=== PATIENT | female | born 1995 | race Caucasian/White ===

== ENCOUNTER 2018-03-22 12:09 | Emergency (ER) | payer SELFPAY ==
[2018-03-22 12:17] VITALS: BP 151/102; PULSE 118; RESP 16; TEMP 36.5; O2SAT 98
[2018-03-22] MEDS: Normal Saline 1,000 ML 1000 ML IV (13:00)
--- NOTE | 2018-03-22 13:13 | W.ED.GENAD ---
Discharge Plan Disposition Patient Disposition: HOME Condition: Good Discharge Details Chief Complaint: RespSymp Clinical Impression: URI (upper respiratory infection), Strep sore throat, Dizziness Primary Care Provider: Jeremi Fragoso ED Provider: Say Kline Home Meds and New Rx's Prescriptions: New amoxicillin 500 mg capsule 500 mg PO BID Qty: 14 RF: 0 meclizine 25 mg tablet 25 mg PO BID PRN (Reason: dizziness) Qty: 10 RF: 0 albuterol sulfate 90 mcg/actuation HFA aerosol inhaler 2 puff IH Q6H PRN (Reason: bronchospasm) Qty: 8 RF: 0 No Action medroxyprogesterone [Depo-Provera] 150 MG/1 ML suspension 150 mg IM 12 Weeks RF: 0 Zyrtec 10 MG capsule 10 mg PO DAILY PRNRF: 0 Discharge Instructions Instructions: Pharyngitis (ED) Additional Instructions: Please take the medication as directed. If you notice any worsening of your symptoms, or any new symptoms such as vomiting, diarrhea, fever, chills, shortness of breath, chest pain, numbness, weakness, or fainting , please return immediately to the emergency department for reevaluation. Please follow up with your primary care provider as soon as possible for reassessment and reevaluation. As always, it was a pleasure participating in your medical care today. Referrals: Jeremi Fragoso [Primary Care Provider] - Medical Decision Making This is a pleasant 22-year-old female who presents for evaluation of various complaints including URI like symptoms, in conjunction with though a central sharp chest pain with associated shortness of breath and a pleuritic component. Patient signs and symptoms are certainly concerning for strep or influenza, however with her pleuritic chest pain in conjunction with her tachycardia and subjective shortness of breath while on control and concern for potential pulmonary embolism. Will further evaluate to rule out PE, rehydrate the patient, check for strep and flu, and treat her pain with Toradol. 2:33 PM Patient's laboratory workup is relatively benign, she has mildly elevated white count but no other significant abnormality. Strep is positive, however her influenza is negative. CT angios per radiology demonstrates no evidence of acute process or pulmonary embolism. Patient is feeling notably better after she received her breathing treatment here. Did give her some meclizine as she is now complaining about mild dizziness. With a benign laboratory workup, the presence of strep, I do feel this explains her sore throat. I do feel that there is a reactive airway disease component with the tightness in her chest, and with no evidence of pulmonary embolism or pneumonia I feel that no further imaging or management is needed for that. We will give an inhaler for home use, amoxicillin for the strep throat, instructions for close follow-up. We discussed red flags which return the patient understands. I have extensively reviewed the treatment plan and discharge instructions with the patient and their family. I have addressed all patient concerns at this time. The patient and family was made aware of what symptoms to monitor for that would warrant a return to the emergency department. Discussed the plan with the patient and family, they demonstrate verbal understanding and agreement with our assessment and plan at this time. EKG 13: 11 Rate 86, intervals normal, no significant ST elevations or depressions, inverted T waves in V1 which can be normal. No S1, Q3, T3 HPI General Date/Time Provider Initiated Documentation: 03/22/18 12:46. HPI Narrative: This is a 22-year-old female with a past medical history of childhood exercise-induced asthma, who takes a Depo-Medrol, who presents today for symptoms of chills, runny nose, sore throat, cough, chest pressure, chest pain, pleuritic chest pain, and shortness of breath. Patient states that symptoms have been present for the last 2 days. She denies any hematemesis. She does admit to 1-2 episodes of vomiting. She denies any exertional chest pain. Denies PE risk factors such as recent long car rides, immobilization, recent surgery, prior history of DVT or PE, family history of PE or DVT, morbid obesity, smoking, hemoptysis, history of cancer. He has no other complaints at this time. She did not get the flu shot. She denies any difficulty swallowing or drinking. She is still able to eat and drink in general. She has not taken any antipyretics today. Related Data Home Medications Medication Instructions Recorded Confirmed medroxyprogesterone [Depo-Provera] 150 mg IM 12 Weeks vial 08/16/12 03/22/18 Zyrtec 10 mg PO DAILY PRN 09/25/13 03/22/18 albuterol sulfate 2 puff IH Q6H PRN #8 gm 03/22/18 amoxicillin 500 mg PO BID #14 cap 03/22/18 meclizine 25 mg PO BID PRN #10 tab 03/22/18 Previous Rx's Medication Instructions Recorded albuterol sulfate 2 puff IH Q6H PRN #8 gm 03/22/18 amoxicillin 500 mg PO BID #14 cap 03/22/18 meclizine 25 mg PO BID PRN #10 tab 03/22/18 Allergies Allergy/AdvReac Type Severity Reaction Status Date / Time aspirin Allergy Intermediate UNSURE OF Unverified 03/22/18 12:20 REACTION acetaminophen AdvReac Unverified 03/22/18 12:20 General Stated Complaint: RespSymp ARNOLDO: 3 Review of Systems Review of Systems All systems reviewed & are unremarkable except as noted in HPI and below PFSH Social History Smoking and Tabacco status: Never Exam Narrative Exam Narrative: 1.Const: Well-nourished, Well-developed, appearing stated age 2.Eyes: PERRL, no conjunctival injection, and symmetrical lids. 3.ENT: Atraumatic external nose and ears. Moist MM. Neck: Symmetric, trachea midline, No thyromegaly. Mild erythema in the posterior oropharynx. No exudates or peritonsillar enlargement. Tender anterior cervical lymphadenopathy. 4.CVS: +S1/S2, No murmurs or gallops. Peripheral pulses 2+ and equal in all extremities. Brisk capillary refill in all extremities. 5.RESP: Unlabored respiratory effort. Clear to auscultation bilaterally. No wheezes rales or rhonchi 6.GI: Soft, Nontender/Nondistended, No hepatosplenomegaly. No guarding or rebound. 7.MSK: Normocephalic/Atraumatic, Extremities w/o deformity or ttp No cyanosis or clubbing, Normal movement of all extremities. No calf tenderness. 8.Skin: Warm, Dry. No rashes or lesions. 9.Neuro: conveyor feeder offbearer II-XII grossly intact. Sensation grossly intact, no focal neurologic deficits. 10.Psych: (AAO) x3. Appropriate mood and affect Course Vital Signs Temperature 36.5 C 03/22/18 12:17 Pulse 118 H 03/22/18 12:17 Respiratory Rate 16 03/22/18 12:17 Blood Pressure 151/102 H 03/22/18 12:17 Pulse Oximetry 98 03/22/18 12:17 Temperature 36.5 C 03/22/18 12:17 Temperature Source Skin 03/22/18 12:17 Pulse 118 H 03/22/18 12:17 Respiratory Rate 16 03/22/18 12:17 Respiratory Effort Non-Labored 03/22/18 12:17 Blood Pressure 151/102 H 03/22/18 12:17 Blood Pressure Position Sitting 03/22/18 12:17 Pulse Oximetry 98 03/22/18 12:17 Oxygen Delivery Method Room Air 03/22/18 12:17 Oxygen Flow Rate 0 03/22/18 12:17 Pain Level 7 03/22/18 12:17 Lab/Test Results Lab/Test Results: 03/22/18 12:55 Nasopharynx Influenza Types A,B Antigen - Pending POC Strep Test-EFREN(Rapid) Start: 03/22/18 12:46 Freq: .Rapid Strep Test Status: Active Protocol: Document 03/22/18 13:02 JONI (Rec: 03/22/18 13:02 [facility] [place] [id number]) Strep test-EFREN(Rapid)-POC POC-Strep test-EFREN (Rapid) Positive POC-Strep test-EFREN (Rapid) Positive
[2018-03-22] MEDS: Ketorolac 30 MG/ML VIAL 15 MG IVP (13:18)
[2018-03-22] MEDS: Albuterol/Ipratropium 3 ML UPD VIAL UPD (13:20)
[2018-03-22 13:22] LABS: Abs Immature Grans 0.05 k/cumm (0.0-0.09); Absolute Basophil Count 0.02 k/cumm (0.0-0.2); Absolute Eosinophil Count 0.13 k/cumm (0.0-0.7); Absolute Neutrophil Count 13.15 k/cumm (1.2-6.7); Basophils % 0.1; Eosinophils % 0.8; HCT 44.2 % (36.0-46.0); HGB 14.7 g/dL (12.0-15.5); Immature Grans % 0.3; Lymphocytes % 10.3; Mean Corp. HGB Concentration 33.3 g/dL (32.0-36.0); Mean Corpuscular Hemoglobin 28.4 pg (27.0-33.0); Mean Corpuscular Volume 85.3 fL (80-95); Mean Platelet Volume 11.7 fL (8.0-11.0); Monocytes % 7.7; Neutrophils % 80.8; Platelet Count 277 x1000/uL (130-400); RBC 5.18 m/cumm (4.00-5.20); RBC Distribution Width 12.8 % (11.7-14.6); White Blood Cell Count 16.28 k/cumm (4.4-10.8)
[2018-03-22 13:25] LABS: Absolute Lymphocyte Count 1.68 k/cumm (1.2-3.4); Absolute Monocyte Count 1.25 k/cumm (0.11-0.7)
[2018-03-22 13:43] LABS: ALT 44 U/L (12-78); AST 20 U/L (15-37); Albumin 3.5 g/dL (3.4-5.0); Alkaline Phosphatase 83 U/L (46-116); Anion Gap 10.1 mmol/L (3-11); BUN 8 mg/dL (7-18); Bilirubin, Total 0.4 mg/dL (0.2-1.0); CO2 25.9 mmol/L (21.0-32.0); CREATININE 0.71 mg/dL (0.55-1.02); Calcium 9.1 mg/dL (8.5-10.1); Chloride 105 mmol/L (98-107); Glucose 100 mg/dL (70-100); Potassium 4.2 mmol/L (3.5-5.1); Sodium 141 mmol/L (136-145); Total Protein 7.7 g/dL (6.4-8.2)
--- NOTE | 2018-03-22 14:09 | DI.CT_ITS ---
SYMPTOMS/DIAGNOSIS: TACHYCARDIA, SHORTNESS OF BREATH, PLEURITIC CP, ON ORAL CONTRACEPTIVE PILLS PE CT: CT angiography was performed with multi slice acquisition and multi planar and 3D reconstruction. The study was conducted according to the usual protocol with an intravenous administration of 100 cc of Omnipaque 350. The pulmonary arteries are well opacified and there is no evidence of embolic disease. There is no evidence of a pulmonary infiltrate. There is no evidence of a pneumothorax or pleural effusion. The heart is not enlarged and there is no evidence of RV strain. There is no evidence of an aortic aneurysm. SUMMARY: No evidence of pulmonary embolic disease. No evidence of acute cardiopulmonary disease.
[2018-03-22] MEDS: Omnipaque 350 MG/ML 100 ML BTL IJ (14:11)
[2018-03-22] MEDS: Amoxicillin 500 MG CAP PO (14:28)
[2018-03-22] MEDS: Meclizine 25 MG TAB PO (14:28)
[2018-03-22 14:47] VITALS: BP 141/102; PULSE 100; RESP 16; TEMP 37; O2SAT 97
== END 2018-03-22 14:50 | disposition home or self-care (01) ==
PROVIDERS: Emergency Provider Student in an Organized Health Care Education/Training Program; PCP Family Medicine
DX: J02.0 Streptococcal pharyngitis (principal); J06.9 Acute upper respiratory infection, unspecified; R42 Dizziness and giddiness; R07.81 Pleurodynia
CPT/HCPCS: 36415; 71275; 80053; 87449; 87880; 93005; 94640; 96361; 96374; 99285; 85025; 93010; J1885; J3490; J7620

== ENCOUNTER 2020-06-17 20:14 | Outpatient (REF) | payer BC, SELFPAY ==
[2020-06-17 19:45] LABS: HCT 44.1 % (36.0-46.0); HGB 14.7 g/dL (11.2-15.7); MCH 28.4 pg (27.0-33.0); MCHC 33.3 % (32.0-36.0); MCV 85.1 fL (80-95); MPV 12.4 fL (8.0-11.0); Platelet Count 299 10^3/uL (130-400); RBC 5.18 10^6/uL (3.93-5.22); RDW 12.6 % (11.7-14.6); RDW-SD 38.7 fL; WBC 7.88 10^3/uL (4.4-10.8)
[2020-06-17 20:05] LABS: ALT 22 U/L (14-59); AST 10 U/L (15-37); Albumin 3.9 g/dL (3.4-5.0); Alkaline Phosphatase 74 U/L (46-116); Anion Gap 12.1 mmol/L (3-11); BUN 6 mg/dL (7-18); Bilirubin, Total 0.5 mg/dL (0.2-1.0); CO2 24.9 mmol/L (21.0-32.0); CREATININE 0.8 mg/dL (0.55-1.02); Calcium 9.1 mg/dL (8.5-10.1); Chloride 106 mmol/L (98-107); Glucose 78 mg/dL (74-106); Potassium 4.2 mmol/L (3.5-5.1); Sodium 143 mmol/L (136-145); TSH (W/Ref FT4) 0.68 uIU/mL (0.36-3.74); Total Protein 7.6 g/dL (6.4-8.2)
[2020-06-19 10:10] LABS: Hepatitis C Ab w Rflx HCV PCR Negative (Negative)
[2020-06-19 10:28] LABS: HIV-1/2 Ag & Ab Screen Negative (Negative)
[2020-06-19 10:43] LABS: Hepatitis B Surface Ag Negative (Negative)
== END 2020-06-17 20:15 | disposition home or self-care (01) ==
LOC: NCHCN 20:14
PROVIDERS: PCP Family Medicine; Visit Provider Family Medicine
DX: F32.9 Major depressive disorder, single episode, unspecified (principal); R63.4 Abnormal weight loss; Z00.00 Encounter for general adult medical examination without abnormal findings; Z11.59 Encounter for screening for other viral diseases; Z11.4 Encounter for screening for human immunodeficiency virus [HIV]; I10 Essential (primary) hypertension
CPT/HCPCS: 80053; 85027; 86803; 87340; 87389; 84443

== ENCOUNTER 2020-08-17 16:16 | Outpatient (REF) | payer SELFPAY ==
[2020-08-17 21:44] LABS: Abs Immature Grans 0.03 10^3/uL (0.0-0.06); Absolute Basophil Count 0.04 10^3/uL (0.0-0.2); Absolute Eosinophil Count 0.25 10^3/uL (0.0-0.7); Absolute Lymphocyte Count 2.98 10^3/uL (1.2-3.4); Absolute Monocyte Count 0.96 10^3/uL (0.1-0.8); Absolute Neutrophil Count 4.26 10^3/uL (1.2-6.7); Basophils % 0.5; Eosinophils % 2.9; Immature Grans % 0.4; MCH 28.5 pg (27.0-33.0); MCHC 32.6 % (32.0-36.0); MCV 87.6 fL (80-95); MPV 12.3 fL (8.0-11.0); Monocytes % 11.3; Neutrophils % 49.9; Nucleated RBC 0 %; Platelet Count 311 10^3/uL (130-400); RBC 4.91 10^6/uL (3.93-5.22); RDW 12.7 % (11.7-14.6); RDW-SD 40.6 fL; WBC 8.52 10^3/uL (4.4-10.8)
[2020-08-17 21:48] LABS: ALT 25 U/L (14-59); AST 11 U/L (15-37); Albumin 3.8 g/dL (3.4-5.0); Alkaline Phosphatase 74 U/L (46-116); Anion Gap 10.6 mmol/L (3-11); BUN 10 mg/dL (7-18); Bilirubin, Total 0.2 mg/dL (0.2-1.0); C-Reactive Protein 0.34 mg/dL (0.0-0.3); CO2 26.4 mmol/L (21.0-32.0); CREATININE 0.8 mg/dL (0.55-1.02); Calcium 9.2 mg/dL (8.5-10.1); Chloride 104 mmol/L (98-107); Glucose 91 mg/dL (74-106); Potassium 4.3 mmol/L (3.5-5.1); Sodium 141 mmol/L (136-145); Total Protein 7.3 g/dL (6.4-8.2)
[2020-08-17 22:22] LABS: ESR 12 mm/hr (0-20)
== END 2020-08-17 16:17 | disposition home or self-care (01) ==
LOC: LBN 16:16
PROVIDERS: PCP Family Medicine; Visit Provider Nurse Practitioner Family
DX: R07.89 Other chest pain (principal); R53.83 Other fatigue
CPT/HCPCS: 80053; 85652; 85025; 86140

== ENCOUNTER 2021-07-21 17:26 | Outpatient (REF) | payer SELFPAY ==
--- NOTE | 2021-07-21 15:15 | PAPFT_PTH ---
PATIENT: Alicia Michael LOC: [facility] U#:[id number] AGE/SX: 25/F ROOM: RE07/21/[address]: Jeremi Fragoso : 1995 BED: DIS: 07/21/2021 SPEC #: [id number] RECD: 07/22/21 12:22 STATUS: DAKOTAH REHoracio #: [id number] PHILLY: 07/21/21 15:[address]: Jeremi Fragoso DEPT: [facility] Cytology RECD BY: Breanna Finch Tissues: 1 - CX/ENDOCX FOR PAP SMEARS Procedures: PAP THIN PREP/[facility] Screening Comments: [id number] (CHLAMYDIA/GC)
[2021-07-23 15:05] LABS: Chlamydia Result Negative (Negative); GC Result Negative (Negative)
== END 2021-07-21 17:27 | disposition home or self-care (01) ==
LOC: NCHCN 17:26
PROVIDERS: PCP Family Medicine; Visit Provider Family Medicine
DX: Z11.3 Encounter for screening for infections with a predominantly sexual mode of transmission (principal); Z12.4 Encounter for screening for malignant neoplasm of cervix
CPT/HCPCS: 87491; 87591; 88142

== ENCOUNTER 2021-11-17 18:40 | Emergency (ER) | payer MEDICAID, SELFPAY ==
[2021-11-17 18:45] VITALS: BP 155/98; PULSE 123; RESP 16; TEMP 37.1; O2SAT 100
--- NOTE | 2021-11-17 19:03 | ED.GENADUL_ITS ---
Discharge Plan Disposition Patient Disposition: HOME Condition: Stable Discharge Details Clinical Impression: Dog bite Primary Care Provider: Jeremi Fragoso ED Provider: Emir Harper Home Meds and New Rx's Prescriptions: New amoxicillin-pot clavulanate 875-125 mg tablet 1 tab PO BID Qty: 14 0RF Continued medroxyprogesterone [Depo-Provera] 150 MG/1 ML suspension 150 mg IM 12 Weeks Label Comments: next dose feb 20 Zyrtec 10 MG capsule 10 mg PO DAILY PRN Discharge Instructions Instructions: Animal Bite (ED) Additional Instructions: the dog should be watched for 10 days for signs of rabies, if they develop any signs return to the emergency department if you have spreading redness from the wound, yellow/white discharge or severe worsening pain return to the emergency department for reevaluation Medical Decision Making 25 yo female who denies chronic medical problems comes in after a friend's dog bit her right upper neck/lower face. Denies any falls or other injuries, just happened about an hour ago. She states the dog is a puppy and not currently vaccinated for rabies. There is a small 1cm superficial laceration to the right upper anterior neck, and a puncture wound about 2mm in diameter to the right lower face. No intraoral injuries. Her wound are superficial, do not feel any imaging indicated, no midline c spine tenderness, no bruits and normal pulses so doubt vascular injury. She is unsure of tetanus status so will update while here. Will place on augmentin. She states the dog can be watched for 10 days so will hold on rabies vaccines for the patient or immunoglobulin. Discussed risks benefits of placing sutures in the superficial laceration on the right upper neck and she declines to have a suture placed which I feel is reasonable given risk of infection. She is stable for d/c, return precautions given Differential Diagnosis Differential Diagnosis: dog bite, laceration, abrasion HPI General Mode of arrival: ambulatory . Date/Time Provider Initiated Documentation: 11/17/21 18:50 . Limitations to Documentation: no limitations . Information obtained by: patient . History of Present Illness 25 year old F presents to the emergency department with the chief complaint of dog bite, described as mild, and is localized to the neck. Patient reports no radiation. Patient started experiencing this day(s) (1) and it has been constant. No relieving factors improve symptom(s), No exacerbating factors reported . Patient notes no other symptoms.. Patient did receive the following treatments prior to arrival, none Related Data Home Medications Medication Instructions Recorded Confirmed medroxyprogesterone 150 mg/mL 150 mg IM 12 Weeks 08/16/12 11/17/21 intramuscular suspension (Depo-Provera) cetirizine 10 mg capsule (Zyrtec) 10 mg PO DAILY PRN 09/25/13 11/17/21 amoxicillin 875 mg-potassium 1 tab PO BID #14 tabs 11/17/21 clavulanate 125 mg tablet Previous Rx's Medication Instructions Recorded amoxicillin 875 mg-potassium 1 tab PO BID #14 tabs 11/17/21 clavulanate 125 mg tablet Allergies Allergy/AdvReac Type Severity Reaction Status Date / Time aspirin Allergy Intermediate UNSURE OF Unverified 11/17/21 18:49 REACTION acetaminophen AdvReac Unverified 11/17/21 18:49 General Stated Complaint: AnimalBite ARNOLDO: 3 Review of Systems All systems reviewed & are unremarkable except as noted in HPI and below Constitutional Constitutional: Denies chills, Denies fever(s) and Denies weakness Eyes Eyes: Denies loss of vision ENT Ears, Nose, Mouth, and Throat: Denies change in voice Cardiovascular Cardiovascular: Denies chest pain and Denies dyspnea Respiratory Respiratory: Denies cough and Denies dyspnea Gastrointestinal Gastrointestinal: Denies abdominal pain, Denies nausea and Denies vomiting Musculoskeletal Musculoskeletal: Denies joint swelling Neurologic Neurologic: Denies loss of vision and Denies weakness PFSH All Active Problems (Updated 11/17/21 @ 19:31 by Emir Harper MD) Dog bite (Acute) Social History Smoking/Tobacco Use Status: Never Smoking risk assessment performed?: Yes Alcohol Intake: never Drug use: Daily Substance use type: marijuana Do you feel safe in your relationship?: Yes Exam Const General: no acute distress Orientation: alert HENMT Head: normal to inspection Ears: external ears normal General nose exam: external nose normal Mouth: moist mucous membranes Eyes General: appearance normal, both eyes and all related structures Neck Neck: full ROM and nontender Resp Effort & Inspection: normal respiratory effort and able to speak in complete sentences Cardio Rate: regular rate Skin General skin exam: no rashes or lesions noted Neuro General: patient alert and patient oriented x3 Extrem General: normal to inspection Psych Mental Status: mental status grossly normal Course Vital Signs Vital signs: Vital Signs Temperature 37.1 C 11/17/21 18:45 Pulse 123 H 11/17/21 18:45 Respiratory Rate 16 11/17/21 18:45 Blood Pressure 155/98 H 11/17/21 18:45 Pulse Oximetry 100 11/17/21 18:45 Temperature 37.1 C 11/17/21 18:45 Temperature Source Temporal Artery Scan 11/17/21 18:45 Pulse 123 H 11/17/21 18:45 Respiratory Rate 16 11/17/21 18:45 Respiratory Effort 11/17/21 18:45 Blood Pressure 155/98 H 11/17/21 18:45 Blood Pressure Position Sitting 11/17/21 18:45 Pulse Oximetry 100 11/17/21 18:45 Oxygen Delivery Method Room Air 11/17/21 18:45 Oxygen Flow Rate 0 11/17/21 18:45 Pain Level 6 11/17/21 18:45
[2021-11-17] MEDS: Amoxicillin 875/Clav. 125 TAB PO (19:22)
[2021-11-17] MEDS: Lidocaine/Epinephri/Tetracaine Topical Gel 3 ML (19:23)
[2021-11-17] MEDS: Ondansetron O.D.T. 4 MG TABEF (19:23)
[2021-11-17] MEDS: Lidocaine/Epinephri/Tetracaine Topical Gel 3 ML TP (19:23)
--- NOTE | 2021-11-17 21:59 | NUR.NOTE ---
Animal bite form faxed to [facility] Health Officer at [phone].Nursing Note:
== END 2021-11-17 20:18 | disposition home or self-care (01) ==
LOC: ER 19:47
PROVIDERS: Emergency Provider Emergency Medicine; PCP Family Medicine
DX: S11.95XA Open bite of unspecified part of neck, initial encounter (principal); S01.85XA Open bite of other part of head, initial encounter; Z23 Encounter for immunization; W54.0XXA Bitten by dog, initial encounter
CPT/HCPCS: 90471; 99283; 99284

== ENCOUNTER 2022-11-22 15:45 | Outpatient (REF) | payer MEDICAID, SELFPAY ==
[2022-11-22 20:18] LABS: Source Nasal/Nares
[2022-11-22 21:05] LABS: COVID-19 PCR Negative (Negative)
== END 2022-11-22 15:46 | disposition home or self-care (01) ==
LOC: LBN 15:45
PROVIDERS: PCP Family Medicine; Visit Provider Nurse Practitioner Family
DX: Z20.822 Contact with and (suspected) exposure to COVID-19 (principal); R05.8 Other specified cough
CPT/HCPCS: 87635